=== PATIENT | female | born 1970 | race American Indian/Alaskan Native ===

== ENCOUNTER 2017-03-24 18:15 | Emergency (ER) | payer MEDICAID, OTHER ==
[2017-03-24] MEDS ORDERED: methylPREDNISolone Sodium Succinate 125 MG/2 ML SDV IVPUSH ONE (19:30)
[2017-03-24] MEDS ORDERED: Sodium Chloride 0.9% 1,000 ML IV ONE (19:30)
[2017-03-24] MEDS ORDERED: Ketorolac 30 MG/ML SDV IVPUSH ONE (19:30)
[2017-03-24] MEDS ORDERED: diphenhydrAMINE 50 MG/ML SDV IVPUSH ONE (19:30)
[2017-03-24 20:30] LABS: CHLORIDE,CL 100 mmol/L (101-111); SODIUM,NA 132 mmol/L (135-145)
[2017-03-24] MEDS ORDERED: Butorphanol 2 MG/ML SDV IVPUSH ONE (21:08)
[2017-03-24 21:21] VITALS: BP 118/88
--- NOTE | 2017-03-24 21:35 | EDM.PDOC ---
ED HPI GENERAL MEDICAL PROBLEM - General Chief Complaint: Allergic Reaction Stated Complaint: HEADACHE/ALLERGIC REACTION Time Seen by Provider: 03/24/17 19:15 Source of Information: Reports: Patient History Limitations: Reports: No Limitations - History of Present Illness INITIAL COMMENTS - FREE TEXT/NARRATIVE: c/o allergic reaction to sun after being out 3 days ago, red itching areas to back of arms and lower legs. Noticed drainage from areas on right arm this am, Last took benadryl at 7am, has had to have steroid sin past also c/o migraine headache for 2 days. Similar to previous. Tylenol and ibuprofen not helping, Sensitive to light. Nauseated no vomiting Arm Pain Score (Numeric/FACES): 10 - Related Data Allergies Allergy/AdvReac Type Severity Reaction Status Date / Time acetaminophen Allergy Vomiting Verified 03/24/17 18:35 [From Tylenol-Codeine] codeine Allergy Vomiting Verified 03/24/17 18:35 [From Tylenol-Codeine] ketorolac Allergy Tremors Verified 03/24/17 21:17 metoclopramide [From Reglan] Allergy Anxiety Verified 03/24/17 18:35 prochlorperazine Allergy Anxiety Verified 03/24/17 18:35 [From Compazine] Home Meds: Home Meds diphenhydrAMINE [Benadryl] 50 mg PO PRN 03/24/17 [History] Past Medical History - Past Health History Medical/Surgical History: Denies Medical/Surgical History Gastrointestinal History: Reports: Hepatitis, Other (See Below) Other Gastrointestinal History: Hep C+ - Past Surgical History Female Surgical History: Reports: Section Social & Family History - Family History Family Medical History: Noncontributory - Tobacco Use Smoking Status *Q: Current Every Day Smoker Years of Tobacco use: 10 Packs/Tins Daily: 0.6 - Caffeine Use Caffeine Use: Reports: Coffee, Energy Drinks, Soda, Tea - Recreational Drug Use Recreational Drug Use: No ED ROS ALLERGIC REACTION - Review of Systems Review Of Systems: ROS reveals no pertinent complaints other than HPI. ED EXAM GENERAL NO PERIP PULSE - Physical Exam Exam: See Below Exam Limited By: No Limitations General Appearance: Alert, Mild Distress (sweatshirt folded over head shielding bright light) Eye Exam: Bilateral Eye: EOMI, PERRL Ears: Normal External Exam Nose: Normal Inspection Throat/Mouth: Normal Inspection Neck: Normal Inspection Respiratory/Chest: No Respiratory Distress Cardiovascular: Normal Peripheral Pulses, Regular Rate, Rhythm Extremities: Normal Inspection Neurological: Alert, Oriented Skin Exam: Warm, Dry, Erythema (back of arm anterior shins, multiple scabbed areas on both upper and lwoer extremities. ), Rash Course - Vital Signs Last Recorded V/S: Last Vital Signs Temp 98.2 F 03/24/17 21:21 Pulse 82 03/24/17 21:21 Resp 18 03/24/17 21:21 BP 118/88 03/24/17 21:21 Pulse Ox 96 03/24/17 21:21 - Orders/Labs/Meds Labs: Laboratory Tests 03/24/17 03/24/17 03/24/17 Range/Units 20:00 20:00 20:51 WBC 8.9 (5.0-10.0) 10^3/uL RBC 4.08 L (4.2-5.4) 10^6/uL Hgb 11.6 L (12.0-16.0) g/dL Hct 35.9 L (37.0-47.0) % MCV 88.0 (80-100) fL MCH 28.4 (27.0-34.0) pg MCHC 32.3 L (33.0-35.0) g/dL Plt Count 254 (150-450) 10^3/uL Neut % (Auto) 72.8 (42.2-75.2) % Lymph % (Auto) 16.5 L (20.5-50.1) % [place] % (Auto) 5.8 (2-8) % Eos % (Auto) 4.7 H (1.0-3.0) % Baso % (Auto) 0.2 (0.0-1.0) % Sodium 132 L (135-145) mmol/L Potassium 3.5 L (3.6-5.0) mmol/L Chloride 100 L (101-111) mmol/L Carbon Dioxide 24.0 (21.0-31.0) mmol/L Anion Gap 11.5 BUN 10 (7-18) mg/dL Creatinine 0.7 (0.6-1.3) mg/dL Est Cr Clr Drug Dosing 87.64 mL/min Estimated GFR (MDRD) > 60 BUN/Creatinine Ratio 14.28 Glucose 89 (74-105) mg/dL Calcium 9.4 (8.4-10.2) mg/dl Total Bilirubin 0.4 (0.2-1.0) mg/dL AST 50 H (10-42) IU/L ALT 70 H (10-60) IU/L Alkaline Phosphatase 109 (42-121) IU/L Total Protein 7.7 (6.7-8.2) g/dl Albumin 3.9 (3.2-5.5) g/dl Globulin 3.8 Albumin/Globulin Ratio 1.03 Urine Color (YELLOW) Urine Appearance (CLEAR) Urine pH (5.0-9.0) Ur Specific Cook[place] (1.005-1.030) Urine Protein (NEGATIVE) Urine Glucose (UA) (NEGATIVE) Urine Ketones (NEGATIVE) Urine Occult Blood (NEGATIVE) Urine Nitrite (NEGATIVE) Urine Bilirubin (NEGATIVE) Urine Urobilinogen (0.2-1.0) mg/dL Ur Leukocyte Esterase (NEGATIVE) Urine RBC /HPF Urine WBC (0-5/HPF) /HPF Ur Epithelial Cells /HPF Amorphous Sediment (0/HPF) /HPF Urine Bacteria (0-FEW/HPF) /HPF Urine Mucus /LPF Urine Opiates Screen Negative (NEGATIVE) Ur Oxycodone Screen Negative (NEGATIVE) Urine Methadone Screen Negative (NEGATIVE) Ur Barbiturates Screen Negative (NEGATIVE) U Tricyclic Antidepress Positive H (NEGATIVE) Ur Phencyclidine Scrn Negative (NEGATIVE) Ur Amphetamine Screen Negative (NEGATIVE) U Methamphetamines Scrn Negative (NEGATIVE) Urine MDMA Screen Negative (NEGATIVE) U Benzodiazepines Scrn Negative (NEGATIVE) Urine Cocaine Screen Negative (NEGATIVE) U Marijuana (THC) Screen Negative (NEGATIVE) 03/24/17 Range/Units 20:51 WBC (5.0-10.0) 10^3/uL RBC (4.2-5.4) 10^6/uL Hgb (12.0-16.0) g/dL Hct (37.0-47.0) % MCV (80-100) fL MCH (27.0-34.0) pg MCHC (33.0-35.0) g/dL Plt Count (150-450) 10^3/uL Neut % (Auto) (42.2-75.2) % Lymph % (Auto) (20.5-50.1) % [place] % (Auto) (2-8) % Eos % (Auto) (1.0-3.0) % Baso % (Auto) (0.0-1.0) % Sodium (135-145) mmol/L Potassium (3.6-5.0) mmol/L Chloride (101-111) mmol/L Carbon Dioxide (21.0-31.0) mmol/L Anion Gap BUN (7-18) mg/dL Creatinine (0.6-1.3) mg/dL Est Cr Clr Drug Dosing mL/min Estimated GFR (MDRD) BUN/Creatinine Ratio Glucose (74-105) mg/dL Calcium (8.4-10.2) mg/dl Total Bilirubin (0.2-1.0) mg/dL AST (10-42) IU/L ALT (10-60) IU/L Alkaline Phosphatase (42-121) IU/L Total Protein (6.7-8.2) g/dl Albumin (3.2-5.5) g/dl Globulin Albumin/Globulin Ratio Urine Color Yellow (YELLOW) Urine Appearance Slightly cloudy (CLEAR) Urine pH 6.5 (5.0-9.0) Ur Specific [place] 1.020 (1.005-1.030) Urine Protein Negative (NEGATIVE) Urine Glucose (UA) Negative (NEGATIVE) Urine Ketones Negative (NEGATIVE) Urine Occult Blood Moderate H (NEGATIVE) Urine Nitrite Negative (NEGATIVE) Urine Bilirubin Negative (NEGATIVE) Urine Urobilinogen 0.2 (0.2-1.0) mg/dL Ur Leukocyte Esterase Negative (NEGATIVE) Urine RBC 5-10 H /HPF Urine WBC 0-5 (0-5/HPF) /HPF Ur Epithelial Cells Moderate H /HPF Amorphous Sediment Few (0/HPF) /HPF Urine Bacteria Rare (0-FEW/HPF) /HPF Urine Mucus Moderate H /LPF Urine Opiates Screen (NEGATIVE) Ur Oxycodone Screen (NEGATIVE) Urine Methadone Screen (NEGATIVE) Ur Barbiturates Screen (NEGATIVE) U Tricyclic Antidepress (NEGATIVE) Ur Phencyclidine Scrn (NEGATIVE) Ur Amphetamine Screen (NEGATIVE) U Methamphetamines Scrn (NEGATIVE) Urine MDMA Screen (NEGATIVE) U Benzodiazepines Scrn (NEGATIVE) Urine Cocaine Screen (NEGATIVE) U Marijuana (THC) Screen (NEGATIVE) Meds: Medications Discontinued Medications Generic Name Dose Route Start Last Admin Trade Name Freq PRN Reason Stop Dose Admin Butorphanol Tartrate 1 mg 03/24/17 21:08 03/24/17 21:14 Stadol IVPUSH 03/24/17 21:09 1 mg ONETIME ONE Administration Diphenhydramine HCl 25 mg 03/24/17 19:30 03/24/17 21:08 Benadryl IVPUSH 03/24/17 19:31 25 mg ONETIME ONE Administration Sodium Chloride 1,000 mls @ 999 mls/hr 03/24/17 19:30 03/24/17 21:06 Normal Saline IV 03/24/17 20:30 999 mls/hr .BOLUS ONE Administration Ketorolac Tromethamine 30 mg 03/24/17 19:30 03/24/17 21:09 Toradol IVPUSH 03/24/17 19:31 Not Given ONETIME ONE Methylprednisolone Sodium Succinate 125 mg 03/24/17 19:30 03/24/17 21:07 Solu-Medrol IVPUSH 03/24/17 19:31 125 mg ONETIME ONE Administration - Re-Assessments/Exams Free Text/Narrative Re-Assessment/Exam: 03/25/17 03:01 headache resolving. Rash improving, decreased redness and itching. Departure - Departure Time of Disposition: 21:45 Disposition: Home, Self-Care 01 Condition: good Clinical Impression: Dermatitis Migraine headache Qualifiers: Migraine type: unspecified Status migrainosus presence: without status migrainosus Intractability: not intractable Qualified Code(s): G43.909 - Migraine, unspecified, not intractable, without status migrainosus - Discharge Information Instructions: Allergies Forms: ED Department Discharge Additional Instructions: doxycycline 100mg one twice daily follow up in clinic on Thursday continue benadryl 25mg every 6 hours as needed for itching cover skin with exposure to sun wash area 3 times daily with antibacterial soap alternate tyelnol and ibuprofen for headache
== END 2017-03-24 21:46 | disposition home or self-care (01) ==
LOC: DL.ED 18:15
DX: G43.909 Migraine, unspecified, not intractable, without status migrainosus (principal); L30.9 Dermatitis, unspecified; F17.210 Nicotine dependence, cigarettes, uncomplicated; Z88.6 Allergy status to analgesic agent; Z88.5 Allergy status to narcotic agent; Z88.8 Allergy status to other drugs, medicaments and biological substances; Z98.890 Other specified postprocedural states
CPT/HCPCS: 36415; 80053; 80305; 81001; 85025; 96361; 96374; 96375; 99283; J0595; J1200; J2930; J7030

== ENCOUNTER 2017-03-25 22:10 | Emergency (ER) | payer MEDICAID, OTHER ==
[2017-03-25] MEDS ORDERED: methylPREDNISolone Sodium Succinate 125 MG/2 ML SDV IVPUSH ONE (22:56)
[2017-03-25] MEDS ORDERED: Ondansetron 4 MG/2 ML SDV IV ONE (22:57)
[2017-03-25] MEDS ORDERED: Butorphanol 2 MG/ML SDV IVPUSH ONE ×2 (22:57→23:46)
[2017-03-25] MEDS ORDERED: diphenhydrAMINE 50 MG/ML SDV IVPUSH ONE (22:58)
[2017-03-25] MEDS ORDERED: Sodium Chloride 0.9% 1,000 ML IV ONE (22:58)
[2017-03-25] MEDS ORDERED: cefTRIAXone 1 GM in Sodium Chloride 0.9% 50 ML IV ONE (23:00)
--- NOTE | 2017-03-25 23:47 | EDM.PDOC ---
{null, ED HPI GENERAL MEDICAL PROBLEM - General Chief Complaint: Skin Complaint Stated Complaint: RASH/HEADACHE Time Seen by Provider: 03/25/17 22:20 Source of Information: Reports: Patient History Limitations: Reports: No Limitations - History of Present Illness INITIAL COMMENTS - FREE TEXT/NARRATIVE: c/o generalized headache, better last night in ED returned this am and worsening throughout day. Nauseated, no vomiting. Rash spreading no along hairline and behind ears. Admits did not fill medications today due to no money , but will be able to tomorrow. Onset: Gradual Location: Reports: Head, Face, Upper Extremity, Left, Upper Extremity, Right, Lower Extremity, Left, Lower Extremity, Right Headache Pain Score (Numeric/FACES): 8 - Related Data Allergies Allergy/AdvReac Type Severity Reaction Status Date / Time acetaminophen Allergy Vomiting Verified 03/25/17 22:22 [From Tylenol-Codeine] codeine Allergy Vomiting Verified 03/25/17 22:22 [From Tylenol-Codeine] ketorolac Allergy Tremors Verified 03/25/17 22:22 metoclopramide [From Reglan] Allergy Anxiety Verified 03/25/17 22:22 prochlorperazine Allergy Anxiety Verified 03/25/17 22:22 [From Compazine] Home Meds: Home Meds diphenhydrAMINE [Benadryl] 50 mg PO ASDIRECTED PRN 03/24/17 [History] Past Medical History - Past Health History Medical/Surgical History: Denies Medical/Surgical History Gastrointestinal History: Reports: Hepatitis, Other (See Below) Other Gastrointestinal History: Hep C+ 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: Dermatologic History: Reports: Urticaria - Infectious Disease History Infectious Disease History: Reports: Hepatitis C - Past Surgical History Female Surgical History: Reports: Section Social & Family History - Family History Family Medical History: Noncontributory - Tobacco Use Smoking Status *Q: Current Every Day Smoker Years of Tobacco use: 20 Packs/Tins Daily: 0.5 - Caffeine Use Caffeine Use: Reports: Coffee - Recreational Drug Use Recreational Drug Use: No ED ROS GENERAL - Review of Systems Review Of Systems: See Below Constitutional: Reports: No Symptoms HEENT: Reports: Other (light sensitive) Respiratory: Reports: No Symptoms Cardiovascular: Reports: No Symptoms GI/Abdominal: Reports: Nausea Musculoskeletal: Reports: No Symptoms Skin: Reports: Pruritis, Rash Neurological: Reports: Headache ED EXAM, SKIN/RASH Exam: See Below Exam Limited By: No Limitations General Appearance: Alert, Anxious, Mild Distress Eye Exam: Bilateral Eye: EOMI Ears: Normal Canal, Normal TMs. No: Normal External Exam (rash extending behind ears) Nose: Normal Inspection Throat/Mouth: Normal Inspection Head: Atraumatic, Normocephalic, Other (increasing redness and rash to forehead , red raised macular) Neck: Tender Lateral (occipital, muscle tension point tenderness with palpation) Respiratory/Chest: No Respiratory Distress, Lungs Clear, Normal Breath Sounds Cardiovascular: Normal Peripheral Pulses, Regular Rate, Rhythm GI/Abdominal: Normal Bowel Sounds, Soft Back Exam: Normal Inspection Neurological: Alert, Oriented, Normal Cognition, Normal Gait Skin: Warm, Dry, Erythema, Excoriations, Rash Characteristics: Macular, Confluent, Patchy, Urticarial, Erythematous. No: Vesicular Associated features: Tenderness, Inflammation Comments: rash increased facial area. upper extremities thighs ches and abdomen clear. No signs of burrowing noted. No areas of redness in web spaces or intra digital. Course - Vital Signs Last Recorded V/S: Last Vital Signs Temp 96.9 F 03/25/17 22:15 Pulse 81 03/25/17 23:57 Resp 14 03/25/17 23:57 BP 117/71 03/25/17 23:57 Pulse Ox 96 03/25/17 23:57 - Orders/Labs/Meds Meds: Medications Discontinued Medications Generic Name Dose Route Start Last Admin Trade Name Ianq PRN Reason Stop Dose Admin Bacitracin 1 dose 03/26/17 00:30 03/26/17 00:34 Bacitracin Oint 1 Gm TOP 03/26/17 00:31 1 dose ONETIME ONE Administration Butorphanol Tartrate 1 mg 03/25/17 22:57 03/25/17 23:21 Stadol IVPUSH 03/25/17 22:58 1 mg ONETIME ONE Administration Butorphanol Tartrate 1 mg 03/25/17 23:46 03/25/17 23:54 Stadol IVPUSH 03/25/17 23:47 1 mg ONETIME ONE Administration Diphenhydramine HCl 25 mg 03/25/17 22:58 03/25/17 23:23 Benadryl IVPUSH 03/25/17 22:59 25 mg ONETIME ONE Administration Hydroxyzine HCl 25 mg 03/26/17 00:30 03/26/17 00:34 Atarax PO 03/26/17 00:31 25 mg ONETIME ONE Administration Sodium Chloride 1,000 mls @ 999 mls/hr 03/25/17 22:58 03/25/17 23:19 Normal Saline IV 03/25/17 23:58 999 mls/hr .BOLUS ONE Administration Ceftriaxone Sodium 1 gm/ 50 mls @ 100 mls/hr 03/25/17 23:00 03/25/17 23:20 Sodium Chloride IV 03/25/17 23:29 100 mls/hr ONETIME ONE Administration Methylprednisolone Sodium Succinate 125 mg 03/25/17 22:56 03/25/17 23:24 Solu-Medrol IVPUSH 03/25/17 22:57 125 mg ONETIME ONE Administration Ondansetron HCl 4 mg 03/25/17 22:57 03/25/17 23:23 Zofran IV 03/25/17 22:58 4 mg ONETIME ONE Administration - Re-Assessments/Exams Free Text/Narrative Re-Assessment/Exam: 03/26/17 00:47 TC [facility] from [facility] regarding [facility] status and expected return [facility] to [facility]. Departure - Departure Time of Disposition: 00:38 Disposition: Home, Self-Care 01 Condition: good Clinical Impression: Tension headache, Dermatitis, Pruritic rash - Discharge Information Instructions: Hives, [id number] Forms: ED Department Discharge Additional Instructions: fill prescriptions given last evening for steroid and antibiotic tylenol 650mg every 4-6 hours as needed for headache follow up in clinic if rash not improving benadryl 25mg every 4 hours as needed for itching }
[2017-03-25 23:58] VITALS: BP 117/71
[2017-03-26] MEDS ORDERED: Bacitracin Oint 1 GM U/D Packet TOP ONE (00:30)
[2017-03-26] MEDS ORDERED: hydrOXYzine HCl 25 MG Tab PO ONE (00:30)
== END 2017-03-26 00:53 | disposition home or self-care (01) ==
LOC: DL.ED 22:10
DX: G44.209 Tension-type headache, unspecified, not intractable (principal); L30.9 Dermatitis, unspecified; L29.9 Pruritus, unspecified; F17.210 Nicotine dependence, cigarettes, uncomplicated; Z88.6 Allergy status to analgesic agent; Z88.5 Allergy status to narcotic agent; Z88.8 Allergy status to other drugs, medicaments and biological substances; Z98.890 Other specified postprocedural states
CPT/HCPCS: 96361; 96365; 96375; 99283; A9270; J0595; J0696; J1200; J2405; J2930; J7030; J7050

== ENCOUNTER 2017-03-26 12:03 | Emergency (ER) | payer MEDICAID, OTHER ==
[2017-03-26 12:41] VITALS: BP 117/77
--- NOTE | 2017-03-26 14:30 | EDM.PDOC ---
{null, ED HPI GENERAL MEDICAL PROBLEM - General Chief Complaint: Headache Stated Complaint: PAIN IN HEAD/POSSBILE ALLERGIC REACTION Time Seen by Provider: 03/26/17 14:20 Source of Information: Reports: Patient History Limitations: Reports: No Limitations - History of Present Illness INITIAL COMMENTS - FREE TEXT/NARRATIVE: This 46 yo female patient reports to the ED with a headache and nausea. The patient reports she has "never" had a headache like this before. 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 The patient reports she has been taking Tylenol and ibuprofen with no symptom relief. The patient was seen in the ED for yesterday ( discharged at midnight) and 1 day ago for a rash and a headache. Last night, the patient was given numerous medications for symptom relief. The patient reports feeling well when she left, but her headache came back this morning. The patient reports she is currently taking Doxy and prednisone, but has continued to feel ill. Onset: Today Onset Date: 03/26/17 Onset Time: 09:00 Duration: Constant, Getting Worse Location: Reports: Head Quality: Reports: Ache, Sharp Severity: Severe Improves with: Reports: None Worsens with: Reports: None Associated Symptoms: Reports: Headaches Treatments INTERVENTIONAL RADIOLOGY RN: Reports: Acetaminophen, NSAIDS Frontal Headache Pain Score (Numeric/FACES): 10 - Related Data Allergies Allergy/AdvReac Type Severity Reaction Status Date / Time acetaminophen Allergy Vomiting Verified 03/25/17 22:22 [From Tylenol-Codeine] codeine Allergy Vomiting Verified 03/25/17 22:22 [From Tylenol-Codeine] ketorolac Allergy Tremors Verified 03/25/17 22:22 metoclopramide [From Reglan] Allergy Anxiety Verified 03/25/17 22:22 prochlorperazine Allergy Anxiety Verified 03/25/17 22:22 [From Compazine] Home Meds: Home Meds diphenhydrAMINE [Benadryl] 50 mg PO ASDIRECTED PRN 03/24/17 [History] Past Medical History - Past Health History Medical/Surgical History: Denies Medical/Surgical History Gastrointestinal History: Reports: Hepatitis, Other (See Below) Other Gastrointestinal History: Hep C+ [employer]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 - Physical Exam Exam: See Below Exam Limited By: No Limitations General Appearance: Alert, WD/WN, No Apparent Distress, Obese Eye Exam: Bilateral Eye: EOMI, Normal Inspection, PERRL Ears: Normal External Exam, Normal Canal, Hearing Grossly Normal, Normal TMs Nose: Normal Inspection, Normal Mucosa, No Blood Throat/Mouth: Normal Inspection, Normal Lips, Normal Teeth, Normal Gums, Normal Oropharynx, Normal Voice, No Airway Compromise Head Exam: Atraumatic, Normocephalic Neck: Normal Inspection, Supple, Non-Tender, Full Range of Motion Respiratory/Chest: No Respiratory Distress, Lungs Clear, Normal Breath Sounds, No Accessory Muscle Use, Chest Non-Tender Cardiovascular: Normal Peripheral Pulses, Regular Rate, Rhythm, No Edema, No Gallop, No JVD, No Murmur, No Rub GI/Abdominal: Normal Bowel Sounds, Soft, Non-Tender, No Organomegaly, No Distention, No Abnormal Bruit, No Mass (Female) Exam: Deferred Rectal (Female) Exam: Deferred Neuro Exam (Abbreviated): Alert, Oriented, CN II-XII Intact, Normal Cognition, Normal Gait, No Motor/Sensory Deficits Back Exam: Normal Inspection, Full Range of Motion, NT Extremities: Normal Inspection, Normal Range of Motion, Non-Tender, No Pedal Edema, Normal Capillary Refill Psychiatric: Depressed Mood, Flat Affect, Tearful Skin Exam: Warm, Dry, Intact, Normal Color, No Rash Course - Vital Signs Last Recorded V/S: Last Vital Signs Temp 36.8 C 03/26/17 12:40 Pulse 83 03/26/17 12:40 Resp 16 03/26/17 12:40 BP 117/77 03/26/17 12:40 Pulse Ox 98 03/26/17 12:40 - Orders/Labs/Meds Orders: Active Orders 24 hr Category Date Time Status COMPREHENSIVE METABOLIC PN,CMP [CHEM] Urgent Lab 03/26/17 15:24 Received Acetaminophen [Tylenol] Med 03/26/17 16:12 Once 650 mg PO NOW ONE Medication Orders Acetaminophen (Tylenol) 650 mg PO NOW ONE Stop: 03/26/17 16:13 Labs: Laboratory Tests 03/26/17 03/26/17 03/26/17 Range/Units 14:28 14:28 14:28 WBC (5.0-10.0) 10^3/uL RBC (4.2-5.4) 10^6/uL Hgb (12.0-16.0) g/dL Hct (37.0-47.0) % MCV (80-100) fL MCH (27.0-34.0) pg MCHC (33.0-35.0) g/dL Plt Count (150-450) 10^3/uL Neut % (Auto) (42.2-75.2) % Lymph % (Auto) (20.5-50.1) % [place] % (Auto) (2-8) % Eos % (Auto) (1.0-3.0) % Baso % (Auto) (0.0-1.0) % Urine Color Yellow (YELLOW) Urine Appearance Clear (CLEAR) Urine pH 7.0 (5.0-9.0) Ur Specific [place] 1.020 (1.005-1.030) Urine Protein Negative (NEGATIVE) Urine Glucose (UA) Negative (NEGATIVE) Urine Ketones Negative (NEGATIVE) Urine Occult Blood Negative (NEGATIVE) Urine Nitrite Negative (NEGATIVE) Urine Bilirubin Negative (NEGATIVE) Urine Urobilinogen 0.2 (0.2-1.0) mg/dL Ur Leukocyte Esterase Negative (NEGATIVE) Urine RBC 0-5 /HPF Urine WBC 0-5 (0-5/HPF) /HPF Ur Epithelial Cells Few /HPF Urine Bacteria Few (0-FEW/HPF) /HPF Urine HCG, Qual Negative Urine Opiates Screen Negative (NEGATIVE) Ur Oxycodone Screen Negative (NEGATIVE) Urine Methadone Screen Negative (NEGATIVE) Ur Barbiturates Screen Negative (NEGATIVE) U Tricyclic Antidepress Positive H (NEGATIVE) Ur Phencyclidine Scrn Negative (NEGATIVE) Ur Amphetamine Screen Negative (NEGATIVE) U Methamphetamines Scrn Negative (NEGATIVE) Urine MDMA Screen Negative (NEGATIVE) U Benzodiazepines Scrn Negative (NEGATIVE) Urine Cocaine Screen Negative (NEGATIVE) U Marijuana (THC) Screen Negative (NEGATIVE) 03/26/17 Range/Units 15:24 WBC 10.7 H (5.0-10.0) 10^3/uL RBC 4.02 L (4.2-5.4) 10^6/uL Hgb 11.5 L (12.0-16.0) g/dL Hct 35.9 L (37.0-47.0) % MCV 89.3 (80-100) fL MCH 28.6 (27.0-34.0) pg MCHC 32.0 L (33.0-35.0) g/dL Plt Count 276 (150-450) 10^3/uL Neut % (Auto) 81.3 H (42.2-75.2) % Lymph % (Auto) 14.2 L (20.5-50.1) % [place] % (Auto) 4.2 (2-8) % Eos % (Auto) 0.1 L (1.0-3.0) % Baso % (Auto) 0.2 (0.0-1.0) % Urine Color (YELLOW) Urine Appearance (CLEAR) Urine pH (5.0-9.0) Ur Specific [place] (1.005-1.030) Urine Protein (NEGATIVE) Urine Glucose (UA) (NEGATIVE) Urine Ketones (NEGATIVE) Urine Occult Blood (NEGATIVE) Urine Nitrite (NEGATIVE) Urine Bilirubin (NEGATIVE) Urine Urobilinogen (0.2-1.0) mg/dL Ur Leukocyte Esterase (NEGATIVE) Urine RBC /HPF Urine WBC (0-5/HPF) /HPF Ur Epithelial Cells /HPF Urine Bacteria (0-FEW/HPF) /HPF Urine HCG, Qual Urine Opiates Screen (NEGATIVE) Ur Oxycodone Screen (NEGATIVE) Urine Methadone Screen (NEGATIVE) Ur Barbiturates Screen (NEGATIVE) U Tricyclic Antidepress (NEGATIVE) Ur Phencyclidine Scrn (NEGATIVE) Ur Amphetamine Screen (NEGATIVE) U Methamphetamines Scrn (NEGATIVE) Urine MDMA Screen (NEGATIVE) U Benzodiazepines Scrn (NEGATIVE) Urine Cocaine Screen (NEGATIVE) U Marijuana (THC) Screen (NEGATIVE) Meds: Medications Generic Name Dose Route Start Last Admin Trade Name Freq PRN Reason Stop Dose Admin Acetaminophen 650 mg 03/26/17 16:12 Tylenol PO 03/26/17 16:13 NOW ONE Departure - Departure Time of Disposition: 16:12 Disposition: Home, Self-Care 01 Condition: fair Clinical Impression: Headache Qualifiers: Headache type: tension-type Headache chronicity pattern: acute headache Intractability: not intractable Qualified Code(s): G44.209 - Tension-type headache, unspecified, not intractable - Discharge Information Instructions: General Headache Without Cause, [id number] Forms: ED Department Discharge Care Plan Goals: The patient was advised of the examination, lab and CT results during the visit. The patient was given a dose of oral Tylenol while in the ED. The patient was encouraged to continue with the medications previously prescribed. If the patient has any additional symptoms or concerns, the patient should follow-up with a primary care facility. - My Orders Last 24 Hours: My Active Orders 03/26/17 15:24 COMPREHENSIVE METABOLIC PN,CMP [CHEM] Urgent 03/26/17 16:12 Acetaminophen [Tylenol] 650 mg PO NOW ONE - Assessment/Plan Last 24 Hours: My Active Orders 03/26/17 15:24 COMPREHENSIVE METABOLIC PN,CMP [CHEM] Urgent 03/26/17 16:12 Acetaminophen [Tylenol] 650 mg PO NOW ONE }
--- NOTE | 2017-03-26 16:01 | CT ---
{null, Clinical history: 46-year-old 220 pound female with "pressure" headache. Scan technique: Volume acquisition of data unenhanced CT scan of the face and paranasal sinuses obta felix with the patient lying supine on the Siemens multi slice scanner [place], [place]. All data archived in the PACS system for storage, reformatting and study. Interpretation: Negative exam. Symmetric clear pneumatization of the paranasal sinuses (sphenoid, ethmoid, maxillary). Equally joey r symmetrically pneumatized mastoid sinuses. Normal TM joints. Nasal septum is straight in the midline. Nonedematous nasal turbinates. No foreign bodies or fractures. CONCLUSION: No evidence of sinusitis. }
--- NOTE | 2017-03-26 16:06 | CT ---
{null, Clinical history: 46-year-old female smoker with "pressure" headaches. Scan technique: Volume acquisition of data emergency unenhanced CT scan of the head obtained with pa tient lying supine on the Siemens multi slice scanner [facility]. All data archived in the PACS system for storage, reformatting and study (bone/brain windows). Interpretation: Negative exam. Uniformly thick bony calvarium and no sign of pathologic skeletal lesion, underlying brain contusion or epidural/subdural hematoma. Physiologic calcifications. Normal scott-white matter pattern and symmetric underlying mirror-image normal ventricular system. No supratentorial or posterior fossa mass lesion. No pathologic intracranial calcifications, focal a erick of ischemic infarct or signs of acute intracerebral/intraventricular/subarachnoid bleed. Cerebellum and brainstem unremarkable. }
[2017-03-26] MEDS ORDERED: Acetaminophen 325 MG Tab PO ONE (16:12)
[2017-03-26 16:16] LABS: CHLORIDE,CL 102 mmol/L (101-111); SODIUM,NA 134 mmol/L (135-145)
== END 2017-03-26 16:22 | disposition home or self-care (01) ==
LOC: DL.ED 12:03
DX: G44.209 Tension-type headache, unspecified, not intractable (principal); F17.210 Nicotine dependence, cigarettes, uncomplicated; Z88.6 Allergy status to analgesic agent; Z88.5 Allergy status to narcotic agent; Z88.8 Allergy status to other drugs, medicaments and biological substances; Z98.890 Other specified postprocedural states
CPT/HCPCS: 36415; 70450; 70486; 80053; 80305; 81001; 81025; 85025; 99284; A9270

== ENCOUNTER 2017-04-10 22:46 | Emergency (ER) | payer MEDICAID, OTHER ==
[2017-04-10 23:02] VITALS: BP 125/87
[2017-04-11] MEDS: Iopamidol 612 MG/ML 100 ML Bottle IVPUSH ONE ×2 (00:39)
[2017-04-11 00:49] LABS: CHLORIDE,CL 101 mmol/L (101-111); SODIUM,NA 135 mmol/L (135-145)
[2017-04-11] MEDS ORDERED: Acetaminophen/HYDROcodone 325-10 MG Tab PO ONE (01:05)
--- NOTE | 2017-04-11 01:16 | EDM.PDOC ---
ED HPI GENERAL MEDICAL PROBLEM - General Chief Complaint: Abdominal Pain Stated Complaint: PAIN IN LOWER ABDOMEN [id number] Time Seen by Provider: 04/10/17 23:00 Source of Information: Reports: Patient History Limitations: Reports: No Limitations - History of Present Illness INITIAL COMMENTS - FREE TEXT/NARRATIVE: c/o RLQ pain since noon, [place], nauseated, No fever was seen in clinic earlier today. Onset: Today Duration: Constant Quality: Reports: Ache Severity: Moderate Improves with: Reports: None Associated Symptoms: Reports: Headaches Right Lower Abdomen Pain Score (Numeric/FACES): 8 - Related Data Allergies Allergy/AdvReac Type Severity Reaction Status Date / Time acetaminophen Allergy Vomiting Verified 04/10/17 23:03 [From Tylenol-Codeine] codeine Allergy Vomiting Verified 04/10/17 23:03 [From Tylenol-Codeine] ketorolac Allergy Tremors Verified 04/10/17 23:03 metoclopramide [From Reglan] Allergy Anxiety Verified 04/10/17 23:03 prochlorperazine Allergy Anxiety Verified 04/10/17 23:03 [From Compazine] ivp dye Allergy Cannot Uncoded 04/11/17 00:28 Remember Home Meds: Home Meds diphenhydrAMINE [Benadryl] 50 mg PO ASDIRECTED PRN 03/24/17 [History] OXcarbazepine [Trileptal] 600 mg PO DAILY 04/10/17 [History] Zolpidem [Ambien] 5 mg PO BEDTIME 04/10/17 [History] Past Medical History - Past Health History Medical/Surgical History: Denies Medical/Surgical History Gastrointestinal History: Reports: Hepatitis, Other (See Below) Other Gastrointestinal History: Hep C+ 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: Dermatologic History: Reports: Urticaria - Infectious Disease History Infectious Disease History: Reports: Hepatitis C - Past Surgical History Female Surgical History: Reports: Section Social & Family History - Family History Family Medical History: Noncontributory - Tobacco Use Smoking Status *Q: Current Every Day Smoker Years of Tobacco use: 20 Packs/Tins Daily: 0.5 Second Hand Smoke Exposure: Yes - Caffeine Use Caffeine Use: Reports: Coffee, Soda - Recreational Drug Use Recreational Drug Use: No ED ROS GENERAL - Review of Systems Review Of Systems: See Below Constitutional: Reports: No Symptoms HEENT: Reports: No Symptoms Respiratory: Reports: No Symptoms Cardiovascular: Reports: No Symptoms GI/Abdominal: Reports: Abdominal Pain (RLQ) : Reports: No Symptoms Musculoskeletal: Reports: Leg Pain Skin: Reports: No Symptoms Neurological: Reports: Headache ED EXAM, GI/ABD - Physical Exam Exam: See Below Exam Limited By: No Limitations General Appearance: Alert, Mild Distress Eyes: Bilateral: Normal Appearance Ears: Normal External Exam Nose: Normal Inspection Throat/Mouth: Normal Inspection Head: Atraumatic, Normocephalic Neck: Normal Inspection Respiratory/Chest: No Respiratory Distress, Lungs Clear, Normal Breath Sounds Cardiovascular: Normal Peripheral Pulses, Regular Rate, Rhythm GI/Abdominal: Normal Bowel Sounds, Soft, Tenderness (RLQ) Extremities: Normal Inspection, Normal Range of Motion Neurological: Alert, Oriented, Normal Cognition Skin Exam: Warm, Dry, Intact, Normal Color Course - Vital Signs Last Recorded V/S: Last Vital Signs Temp 97 F 04/10/17 22:59 Pulse 112 H 04/10/17 22:59 Resp 18 04/10/17 22:59 BP 125/87 04/10/17 22:59 Pulse Ox 98 04/10/17 22:59 - Orders/Labs/Meds Labs: Laboratory Tests 04/10/17 04/10/17 04/10/17 Range/Units 22:57 22:57 22:57 WBC (5.0-10.0) 10^3/uL RBC (4.2-5.4) 10^6/uL Hgb (12.0-16.0) g/dL Hct (37.0-47.0) % MCV (80-100) fL MCH (27.0-34.0) pg MCHC (33.0-35.0) g/dL Plt Count (150-450) 10^3/uL Neut % (Auto) (42.2-75.2) % Lymph % (Auto) (20.5-50.1) % Love % (Auto) (2-8) % Eos % (Auto) (1.0-3.0) % Baso % (Auto) (0.0-1.0) % Sodium (135-145) mmol/L Potassium (3.6-5.0) mmol/L Chloride (101-111) mmol/L Carbon Dioxide (21.0-31.0) mmol/L Anion Gap BUN (7-18) mg/dL Creatinine (0.6-1.3) mg/dL Est Cr Clr Drug Dosing mL/min Estimated GFR (MDRD) BUN/Creatinine Ratio Glucose (74-105) mg/dL Calcium (8.4-10.2) mg/dl Total Bilirubin (0.2-1.0) mg/dL AST (10-42) IU/L ALT (10-60) IU/L Alkaline Phosphatase (42-121) IU/L Total Protein (6.7-8.2) g/dl Albumin (3.2-5.5) g/dl Globulin Albumin/Globulin Ratio Amylase (28-100) U/L Lipase (22-51) U/L Urine Color Yellow (YELLOW) Urine Appearance Clear (CLEAR) Urine pH 5.5 (5.0-9.0) Ur Specific [place] <= 1.005 (1.005-1.030) Urine Protein Negative (NEGATIVE) Urine Glucose (UA) 100 H (NEGATIVE) Urine Ketones Negative (NEGATIVE) Urine Occult Blood Negative (NEGATIVE) Urine Nitrite Negative (NEGATIVE) Urine Bilirubin Negative (NEGATIVE) Urine Urobilinogen 0.2 (0.2-1.0) mg/dL Ur Leukocyte Esterase Negative (NEGATIVE) Urine RBC 0-5 /HPF Urine WBC 0-5 (0-5/HPF) /HPF Ur Epithelial Cells Moderate H /HPF Urine Bacteria Moderate H (0-FEW/HPF) /HPF Urine HCG, Qual Negative Urine Opiates Screen Negative (NEGATIVE) Ur Oxycodone Screen Negative (NEGATIVE) Urine Methadone Screen Negative (NEGATIVE) Ur Barbiturates Screen Negative (NEGATIVE) U Tricyclic Antidepress Negative (NEGATIVE) Ur Phencyclidine Scrn Negative (NEGATIVE) Ur Amphetamine Screen Negative (NEGATIVE) U Methamphetamines Scrn Negative (NEGATIVE) Urine MDMA Screen Negative (NEGATIVE) U Benzodiazepines Scrn Negative (NEGATIVE) Urine Cocaine Screen Negative (NEGATIVE) U Marijuana (THC) Screen Negative (NEGATIVE) 04/10/17 04/11/17 Range/Units 23:25 00:25 WBC 8.2 (5.0-10.0) 10^3/uL RBC 4.67 (4.2-5.4) 10^6/uL Hgb 13.1 (12.0-16.0) g/dL Hct 40.4 (37.0-47.0) % MCV 86.5 (80-100) fL MCH 28.1 (27.0-34.0) pg MCHC 32.4 L (33.0-35.0) g/dL Plt Count 68 L (150-450) 10^3/uL Neut % (Auto) 69.4 (42.2-75.2) % Lymph % (Auto) 23.7 (20.5-50.1) % Love % (Auto) 4.5 (2-8) % Eos % (Auto) 2.2 (1.0-3.0) % Baso % (Auto) 0.2 (0.0-1.0) % Sodium 135 (135-145) mmol/L Potassium 4.1 (3.6-5.0) mmol/L Chloride 101 (101-111) mmol/L Carbon Dioxide 24.0 (21.0-31.0) mmol/L Anion Gap 14.1 BUN 12 (7-18) mg/dL Creatinine 0.6 (0.6-1.3) mg/dL Est Cr Clr Drug Dosing 102.25 mL/min Estimated GFR (MDRD) > 60 BUN/Creatinine Ratio 20.00 Glucose 160 H (74-105) mg/dL Calcium 8.3 L (8.4-10.2) mg/dl Total Bilirubin 0.4 (0.2-1.0) mg/dL AST 40 (10-42) IU/L ALT 85 H (10-60) IU/L Alkaline Phosphatase 109 (42-121) IU/L Total Protein 6.3 L (6.7-8.2) g/dl Albumin 3.4 (3.2-5.5) g/dl Globulin 2.9 Albumin/Globulin Ratio 1.17 Amylase 64 (28-100) U/L Lipase 43 (22-51) U/L Urine Color (YELLOW) Urine Appearance (CLEAR) Urine pH (5.0-9.0) Ur Specific [place] (1.005-1.030) Urine Protein (NEGATIVE) Urine Glucose (UA) (NEGATIVE) Urine Ketones (NEGATIVE) Urine Occult Blood (NEGATIVE) Urine Nitrite (NEGATIVE) Urine Bilirubin (NEGATIVE) Urine Urobilinogen (0.2-1.0) mg/dL Ur Leukocyte Esterase (NEGATIVE) Urine RBC /HPF Urine WBC (0-5/HPF) /HPF Ur Epithelial Cells /HPF Urine Bacteria (0-FEW/HPF) /HPF Urine HCG, Qual Urine Opiates Screen (NEGATIVE) Ur Oxycodone Screen (NEGATIVE) Urine Methadone Screen (NEGATIVE) Ur Barbiturates Screen (NEGATIVE) U Tricyclic Antidepress (NEGATIVE) Ur Phencyclidine Scrn (NEGATIVE) Ur Amphetamine Screen (NEGATIVE) U Methamphetamines Scrn (NEGATIVE) Urine MDMA Screen (NEGATIVE) U Benzodiazepines Scrn (NEGATIVE) Urine Cocaine Screen (NEGATIVE) U Marijuana (THC) Screen (NEGATIVE) Meds: Medications Discontinued Medications Generic Name Dose Route Start Last Admin Trade Name Freq PRN Reason Stop Dose Admin Hydrocodone Bitart/Acetaminophen 1 tab 04/11/17 01:05 04/11/17 01:17 [place] 325-10 Mg PO 04/11/17 01:06 1 tab ONETIME ONE Administration Iopamidol 100 ml 04/10/17 23:50 04/11/17 00:39 Isovue-300 (61%) IVPUSH 04/10/17 23:51 Not Given ONETIME ONE - Radiology Interpretation Free Text/Narrative:: CT abdomen negative Departure - Departure Time of Disposition: 01:12 Disposition: Home, Self-Care 01 Condition: undetermined Clinical Impression: Renal mass, right Abdominal pain Qualifiers: Abdominal location: right lower quadrant Qualified Code(s): R10.31 - Right lower quadrant pain Constipation Qualifiers: Constipation type: unspecified constipation type Qualified Code(s): K59.00 - Constipation, unspecified - Discharge Information Instructions: Constipation, Adult, [id number] Referrals: PCP,None [Primary Care Provider] - Forms: ED Department Discharge Additional Instructions: increase fluid intake, fruit and fiber in diet fleets enema or milk of mag tonight Follow up with Primary Care Provider Thursday morning regarding abnormal CT scan - questionable mass on right kidney.
== END 2017-04-11 01:20 | disposition home or self-care (01) ==
LOC: DL.ED 22:46
DX: N28.89 Other specified disorders of kidney and ureter (principal); K59.00 Constipation, unspecified; F17.210 Nicotine dependence, cigarettes, uncomplicated; Z88.6 Allergy status to analgesic agent; Z88.5 Allergy status to narcotic agent; Z91.041 Radiographic dye allergy status; Z79.899 Other long term (current) drug therapy; Z88.8 Allergy status to other drugs, medicaments and biological substances
CPT/HCPCS: 36415; 74176; 80053; 80305; 81001; 81025; 82150; 83690; 85025; 99284; A9270; Q9967

== ENCOUNTER 2017-05-17 19:56 | Emergency (ER) | payer MEDICAID, OTHER ==
[2017-05-17 21:01] VITALS: BP 116/63
[2017-05-17] MEDS ORDERED: Acetaminophen/oxyCODONE 325-5 MG Tab PO ONE ×2 (21:15→23:05)
--- NOTE | 2017-05-17 22:40 | EDM.PDOC ---
ED HPI GENERAL MEDICAL PROBLEM - General Chief Complaint: Back Pain or Injury Stated Complaint: SHARP BACK PAIN AND KNEES Time Seen by Provider: 05/17/17 20:59 Source of Information: Reports: Patient History Limitations: Reports: No Limitations - History of Present Illness INITIAL COMMENTS - FREE TEXT/NARRATIVE: right knee pain since last night with swelling tonight. hx chronic pain , worse 2 days, moving boxes at work yesterday, pain worse with movement, tried ibuprofen with out relief, flex sleeve knee brace not helpful. 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, NSAIDS Right Knee Pain Score (Numeric/FACES): 10 - Related Data Allergies Allergy/AdvReac Type Severity Reaction Status Date / Time acetaminophen Allergy Vomiting Verified 05/17/17 20:25 [From Tylenol-Codeine] codeine Allergy Vomiting Verified 05/17/17 20:25 [From Tylenol-Codeine] ketorolac Allergy Tremors Verified 05/17/17 20:25 metoclopramide [From Reglan] Allergy Anxiety Verified 05/17/17 20:25 prochlorperazine Allergy Anxiety Verified 05/17/17 20:25 [From Compazine] ivp dye Allergy Cannot Uncoded 05/17/17 20:25 Remember Home Meds: Home Meds diphenhydrAMINE [Benadryl] 50 mg PO ASDIRECTED PRN 03/24/17 [History] OXcarbazepine [Trileptal] 600 mg PO DAILY 04/10/17 [History] Zolpidem [Ambien] 5 mg PO BEDTIME 04/10/17 [History] ARIPiprazole [Abilify] 1 tab PO DAILY 05/17/17 [History] Citalopram Hydrobromide [Celexa] 1 tab PO DAILY 05/17/17 [History] QUEtiapine Fumarate [Quetiapine Fumarate ER] 1 tab PO DAILY 05/17/17 [History] metFORMIN [Glucophage XR] 1 tab PO BID 05/17/17 [History] Past Medical History - Past Health History Medical/Surgical History: Denies Medical/Surgical History Gastrointestinal History: Reports: Hepatitis, Other (See Below) Other Gastrointestinal History: Hep C+ 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: Musculoskeletal History: Reports: Other (See Below) Other Musculoskeletal History: Chronic R) knee pain Psychiatric History: Reports: Anxiety, Depression, Emotional Problems Dermatologic History: Reports: Urticaria - Infectious Disease History Infectious Disease History: Reports: Hepatitis C - Past Surgical History Female Surgical History: Reports: Section Social & Family History - Family History Family Medical History: Noncontributory - Tobacco Use Smoking Status *Q: Current Every Day Smoker Years of Tobacco use: 27 Packs/Tins Daily: 0.5 Second Hand Smoke Exposure: Yes - Caffeine Use Caffeine Use: Reports: Coffee, Soda - Recreational Drug Use Recreational Drug Use: No ED ROS GENERAL - Review of Systems Review Of Systems: See Below Constitutional: Reports: No Symptoms HEENT: Reports: No Symptoms Respiratory: Reports: No Symptoms Cardiovascular: Reports: No Symptoms Endocrine: Reports: No Symptoms GI/Abdominal: Reports: No Symptoms Musculoskeletal: Reports: Joint Pain (knee pain with movement, swollen) Skin: Reports: No Symptoms Neurological: Reports: No Symptoms Psychiatric: Reports: Anxiety ED EXAM, GENERAL - Physical Exam Exam: See Below Exam Limited By: No Limitations General Appearance: Alert, Moderate Distress Eye Exam: Bilateral Eye: EOMI Ears: Normal External Exam Nose: Normal Inspection Throat/Mouth: Normal Inspection Head: Atraumatic, Normocephalic Neck: Normal Inspection Respiratory/Chest: No Respiratory Distress, Lungs Clear Cardiovascular: Normal Peripheral Pulses, Regular Rate, Rhythm GI/Abdominal: Normal Bowel Sounds, Soft Extremities: Joint Swelling (right nee moderate swelling crepitus, no laxity noted increased pain with lateral stress. ). No: Normal Range of Motion, Redness Psychiatric: Anxious Skin Exam: Warm, Dry, Intact, Normal Color Course - Vital Signs Last Recorded V/S: Last Vital Signs Temp 98.1 F 05/17/17 20:59 Pulse 91 05/17/17 20:59 Resp 20 05/17/17 20:59 BP 116/63 05/17/17 20:59 Pulse Ox 97 05/17/17 20:59 - Orders/Labs/Meds Meds: Medications Discontinued Medications Generic Name Dose Route Start Last Admin Trade Name Joseph PRN Reason Stop Dose Admin Hydromorphone HCl 1 mg 05/17/17 22:52 05/17/17 23:02 Dilaudid IM 05/17/17 22:53 1 mg ONETIME ONE Administration Orphenadrine Citrate 60 mg 05/17/17 22:55 05/17/17 23:00 Norflex IM 05/17/17 22:56 60 mg ONETIME ONE Administration Oxycodone/Acetaminophen 1 tab 05/17/17 21:15 05/17/17 21:26 Percocet 325-5 Mg PO 05/17/17 21:16 1 tab ONETIME ONE Administration Oxycodone/Acetaminophen Confirm 05/17/17 23:05 Percocet 325-5 Mg Administered 05/17/17 23:06 Dose 2 tab .ROUTE .[facility] - Radiology Interpretation Free Text/Narrative:: Right knee soft tissue swelling, no fracture. Departure - Departure Time of Disposition: 22:37 Disposition: Home, Self-Care 01 Condition: Fair Clinical Impression: Knee pain, right Qualifiers: Chronicity: acute Qualified Code(s): M25.561 - Pain in right knee - Discharge Information Instructions: Knee Pain Forms: ED Department Discharge Additional Instructions: knee immobilizer rest crutches with weight bearing as tolerated follow up with primary care later this week if not improving percocet 5/325 one every 8 hours as needed for severe pain #2 Ibuprofen 800mg every 8 hours with food ice to knee
[2017-05-17] MEDS ORDERED: HYDROmorphone 1 MG/ML Syringe IM ONE (22:52)
[2017-05-17] MEDS ORDERED: Acetaminophen/oxyCODONE 325-5 MG Tab ONE (23:05)
== END 2017-05-17 23:16 | disposition home or self-care (01) ==
LOC: DL.ED 19:56
DX: M25.561 Pain in right knee (principal); Z88.8 Allergy status to other drugs, medicaments and biological substances; Z88.5 Allergy status to narcotic agent; Z91.041 Radiographic dye allergy status; Z79.899 Other long term (current) drug therapy; F17.210 Nicotine dependence, cigarettes, uncomplicated
CPT/HCPCS: 73562; 96372; 99283; A9270; J1170; J2360

== ENCOUNTER 2017-05-22 11:34 | Emergency (ER) | payer MEDICAID, OTHER ==
[2017-05-22 11:49] VITALS: BP 125/76
--- NOTE | 2017-05-22 12:09 | EDM.PDOC ---
ED HPI GENERAL MEDICAL PROBLEM - General Chief Complaint: Lower Extremity Injury/Pain Stated Complaint: FELL AT WORK, [id number] Time Seen by Provider: 05/22/17 12:06 Source of Information: Reports: Patient History Limitations: Reports: No Limitations - History of Present Illness INITIAL COMMENTS - FREE TEXT/NARRATIVE: 46 yo female presents with c/o exacerbation of chronic knee pain. States that she was at work and she just "couldn't walk on it anymore". She was seen here on Thursday and given percocet for pain, crutches and knee immobilizer. pt did not present with crutches or immobilizer today, had on cloth knee brace upon arrival. States that she was not given a prescription for pain medication. Pt states that she has an appointment on Thursday with her PCP and was told that she may need an MRI. States that she was told "a long time ago that I may need surgery". Onset Date: 05/01/17 Duration: Constant, Getting Worse Location: Reports: Lower Extremity, Right Quality: Reports: Same as Previous Episode, Throbbing Severity: Severe Improves with: Reports: Immobilization Worsens with: Reports: Movement Context: Reports: Activity Associated Symptoms: Reports: No Other Symptoms Right Knee Pain Score (Numeric/FACES): 8 - Related Data Allergies Allergy/AdvReac Type Severity Reaction Status Date / Time acetaminophen Allergy Vomiting Unverified 05/22/17 12:06 [From Tylenol-Codeine] codeine Allergy Vomiting Verified 05/17/17 20:25 [From Tylenol-Codeine] ketorolac Allergy Tremors Verified 05/17/17 20:25 metoclopramide [From Reglan] Allergy Anxiety Verified 05/17/17 20:25 prochlorperazine Allergy Anxiety Verified 05/17/17 20:25 [From Compazine] ivp dye Allergy Cannot Uncoded 05/17/17 20:25 Remember Home Meds: Home Meds diphenhydrAMINE [Benadryl] 50 mg PO ASDIRECTED PRN 03/24/17 [History] OXcarbazepine [Trileptal] 600 mg PO DAILY 04/10/17 [History] Zolpidem [Ambien] 5 mg PO BEDTIME 04/10/17 [History] ARIPiprazole [Abilify] 1 tab PO DAILY 05/17/17 [History] Citalopram Hydrobromide [Celexa] 1 tab PO DAILY 05/17/17 [History] QUEtiapine Fumarate [Quetiapine Fumarate ER] 1 tab PO DAILY 05/17/17 [History] metFORMIN [Glucophage XR] 1 tab PO BID 05/17/17 [History] Past Medical History - Past Health History Medical/Surgical History: Denies Medical/Surgical History Gastrointestinal History: Reports: Hepatitis, Other (See Below) Other Gastrointestinal History: Hep C+ 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: Musculoskeletal History: Reports: Other (See Below) Other Musculoskeletal History: Chronic R) knee pain Psychiatric History: Reports: Anxiety, Depression, Emotional Problems Dermatologic History: Reports: Urticaria - Infectious Disease History Infectious Disease History: Reports: Hepatitis C - Past Surgical History GI Surgical History: Reports: Cholecystectomy Female Surgical History: Reports: Section Social & Family History - Family History Family Medical History: Noncontributory - Tobacco Use Smoking Status *Q: Current Every Day Smoker Years of Tobacco use: 10 Packs/Tins Daily: 0.5 Second Hand Smoke Exposure: Yes - Caffeine Use Caffeine Use: Reports: Coffee, Soda - Recreational Drug Use Recreational Drug Use: No Review of Systems - Review of Systems Review Of Systems: See Below Musculoskeletal: Reports: Leg Pain, Joint Pain, Joint Swelling ED EXAM, GENERAL - Physical Exam Exam: See Below Exam Limited By: No Limitations General Appearance: Alert, WD/WN, No Apparent Distress Respiratory/Chest: No Respiratory Distress, Lungs Clear, Normal Breath Sounds, No Accessory Muscle Use, Chest Non-Tender Cardiovascular: Normal Peripheral Pulses, Regular Rate, Rhythm, No Edema, No Gallop, No JVD, No Murmur, No Rub Peripheral Pulses: 4+: Popliteal (L), Popliteal (R), Posterior Tibial (L), Posterior Tibial (R), Dorsalis Pedis (L), Dorsalis Pedis (R) Extremities: Normal Range of Motion, No Pedal Edema, Normal Capillary Refill, Joint Swelling (right knee medially, no ballottement noted, no laxity noted), Leg Pain, Limited Range of Motion (due to pain. Knee with no instability. ) Neurological: Alert, Oriented, CN II-XII Intact, Normal Cognition, Normal Gait, Normal Reflexes, No Motor/Sensory Deficits Skin Exam: Warm, Dry, Intact, Normal Color, No Rash Course - Vital Signs Last Recorded V/S: Last Vital Signs Temp 97.2 F 05/22/17 11:48 Pulse 69 05/22/17 11:48 Resp 16 05/22/17 11:48 BP 125/76 05/22/17 11:48 Pulse Ox 100 05/22/17 11:48 - Orders/Labs/Meds Orders: Active Orders 24 hr Category Date Time Status Knee 3V Rt [CR] Urgent Exams 05/22/17 12:35 Stop Req Orphenadrine [Norflex] Med 05/22/17 12:30 Active 60 mg IM Q12H Medication Orders Orphenadrine Citrate (Norflex) 60 mg IM Q12H JUANITA Last Admin: 05/22/17 12:33 Dose: 60 mg Meds: Medications Generic Name Dose Route Start Last Admin Trade Name Freq PRN Reason Stop Dose Admin Orphenadrine Citrate 60 mg 05/22/17 12:30 05/22/17 12:33 Norflex IM 60 mg Q12H JUANITA Administration Discontinued Medications Generic Name Dose Route Start Last Admin Trade Name Freq PRN Reason Stop Dose Admin Hydromorphone HCl 1 mg 05/22/17 12:52 05/22/17 13:02 Dilaudid IM 05/22/17 12:53 1 mg ONETIME ONE Administration Methylprednisolone Sodium Succinate 40 mg 05/22/17 12:21 05/22/17 12:35 Solu-Medrol IM 05/22/17 12:22 40 mg ONETIME ONE Administration Tramadol HCl 50 mg 05/22/17 12:16 05/22/17 12:32 Ultram PO 05/22/17 12:17 50 mg ONETIME ONE Administration - Re-Assessments/Exams Free Text/Narrative Re-Assessment/Exam: 05/22/17 13:07 pain decreased, will encourage keeping appointment on Thursday and need for orthopedic referral from PCP. Departure - Departure Time of Disposition: 13:03 Disposition: Home, Self-Care 01 Condition: Good Clinical Impression: Sprain of knee Knee pain Qualifiers: Chronicity: acute Laterality: right Qualified Code(s): M25.561 - Pain in right knee - Discharge Information Instructions: Crutch Use, [id number], Knee Sprain, [id number] Forms: ED Department Discharge, Return to Work/School Form Additional Instructions: Make sure to keep the knee immobilizer on except for when you are showering or if uncomfortable to sleep in. Use crutches and do not put weight on the knee. Take the medication as prescribed. Medrol dose pack and percocet 5/325 (10 tabs) . Make sure to keep your appointment with your PCP on thursday. Follow up with orthopedic doctor for continued symptoms. - My Orders Last 24 Hours: My Active Orders 05/22/17 12:30 Orphenadrine [Norflex] 60 mg IM Q12H 05/22/17 12:35 Knee 3V Rt [CR] Urgent - Assessment/Plan Last 24 Hours: My Active Orders 05/22/17 12:30 Orphenadrine [Norflex] 60 mg IM Q12H 05/22/17 12:35 Knee 3V Rt [CR] Urgent
[2017-05-22] MEDS ORDERED: traMADol 50 MG Tab PO ONE (12:16)
[2017-05-22] MEDS ORDERED: methylPREDNISolone Sodium Succinate 40 MG/1 ML SDV IM ONE (12:21)
[2017-05-22] MEDS ORDERED: HYDROmorphone 1 MG/ML Syringe IM ONE (12:52)
== END 2017-05-22 13:19 | disposition home or self-care (01) ==
LOC: DL.ED 11:34
DX: S83.91XA Sprain of unspecified site of right knee, initial encounter (principal); F17.210 Nicotine dependence, cigarettes, uncomplicated; F41.9 Anxiety disorder, unspecified; F32.9 Major depressive disorder, single episode, unspecified; Z79.899 Other long term (current) drug therapy; Z90.49 Acquired absence of other specified parts of digestive tract; Z91.09 Other allergy status, other than to drugs and biological substances; Z88.8 Allergy status to other drugs, medicaments and biological substances; Z88.5 Allergy status to narcotic agent; W19.XXXA Unspecified fall, initial encounter; Y99.0 Civilian activity done for income or pay
CPT/HCPCS: 96374; 96375; 99283; A9270; J1170; J2360; J2920